=== PATIENT | female | born 1990 | race Caucasian/White ===

== ENCOUNTER 2017-10-25 19:05 | Emergency (ER) | payer OTHER, MEDICAID ==
[~2017-10-25] VITALS: Ht 160 cm; Wt 90.7 kg
[~2017-10-25 19:05] MED LIST: ACYCLOVIR 400400 MG PO; AMOXICILLIN875 MG PO; CITRANATAL B-C1 EAC1 PO; TRINATE TABLET1 TAB PO; ZOFRAN4 MG PO
[2017-10-25 19:09] VITALS: BP 143/81
[2017-10-25] MEDS ORDERED: BACTRIM DS TAB1 EACH PO (19:15)
[2017-10-25] MEDS ORDERED: KEFLEX500 M1 PO (19:15)
[2017-10-25] MEDS ORDERED: TRAMADOL 50 MG50 MG PO (19:16)
== END 2017-10-25 19:20 | disposition home or self-care (01) ==
LOC: M.ERS 19:05
DX: L03.317 Cellulitis of buttock (principal); F17.210 Nicotine dependence, cigarettes, uncomplicated

== ENCOUNTER 2017-10-28 22:09 | Emergency (ER) | payer OTHER, MEDICAID ==
[~2017-10-28] VITALS: Ht 160 cm; Wt 90.7 kg
[~2017-10-28 22:09] MED LIST changes: +BACTRIM DS TAB1 EACH PO; +KEFLEX500 M1 PO; +TRAMADOL 50 MG50 MG PO
[2017-10-28 22:55] VITALS: BP 129/59
== END 2017-10-28 22:56 | disposition home or self-care (01) ==
LOC: M.ERS 22:09
DX: L02.31 Cutaneous abscess of buttock (principal); Z98.890 Other specified postprocedural states

== ENCOUNTER 2018-03-01 18:59 | Emergency (ER) | payer OTHER, MEDICAID ==
[~2018-03-01] VITALS: Ht 160 cm; Wt 95.3 kg
[2018-03-01 21:28] LABS: URINE BILIRUBIN NEGATIVE (Negative); URINE BLOOD TRACE (Negative); URINE CLARITY CLEAR; URINE COLOR YELLOW; URINE GLUCOSE-RANDOM NEGATIVE (Negative); URINE KETONES NEGATIVE (Negative); URINE LEUKOCYTES NEGATIVE (Negative); URINE NITRITE NEGATIVE (Negative); URINE PROTEIN NEGATIVE (Negative); URINE SPECIFIC GRAVITY >= 1.030 (1.005-1.030); URINE UROBILINOGEN 0.2 E.U./dl (0.2-1.0)
[2018-03-01 21:59] VITALS: BP 104/71
== END 2018-03-01 22:00 | disposition home or self-care (01) ==
LOC: M.ERS 18:59
PROVIDERS: Physician Assistant Surgical
DX: J02.9 Acute pharyngitis, unspecified (principal); N93.9 Abnormal uterine and vaginal bleeding, unspecified; F17.210 Nicotine dependence, cigarettes, uncomplicated; Z98.890 Other specified postprocedural states

== ENCOUNTER 2019-09-18 22:05 | Emergency (ER) | payer OTHER, MEDICAID ==
[~2019-09-18] VITALS: Ht 162.6 cm; Wt 104.3 kg
[2019-09-18 22:22] LABS: URINE BILIRUBIN NEGATIVE (Negative); URINE BLOOD 3+ (Negative); URINE COLOR YELLOW; URINE GLUCOSE-RANDOM NEGATIVE (Negative); URINE KETONES TRACE (Negative); URINE LEUKOCYTES-REFLEX TRACE (Negative); URINE NITRITE-REFLEX NEGATIVE (Negative); URINE PROTEIN TRACE (Negative); URINE SPECIFIC GRAVITY >= 1.030 (1.005-1.030); URINE UROBILINOGEN 0.2 E.U./dl (0.2-1.0)
[2019-09-18 22:23] LABS: URINE CLARITY HAZY
[2019-09-18 22:29] LABS: BACTERIA-REFLEX None Seen /HPF (None Seen); MUCUS 4-6 Moderate strn/LPF (None Seen); SQUAMOUS >10 Many /LPF (0-3); URINE RBC >20 Many /HPF (0-2); URINE WBC-REFLEX None Seen /HPF (0-5)
[2019-09-18 22:30] LABS: CASTS None Seen /LPF (None Seen); CRYSTALS None Seen /LPF (None Seen)
[2019-09-19] MEDS ORDERED: HYDROCODON-ACE1 EAC8 PO (00:05)
[2019-09-19] MEDS ORDERED: ZOFRAN ODT4 MG PO (00:05)
[2019-09-19 00:23] VITALS: BP 98/50
== END 2019-09-19 00:36 | disposition home or self-care (01) ==
LOC: M.ERS 22:05
PROVIDERS: Emergency Medicine
DX: N20.0 Calculus of kidney (principal); R11.10 Vomiting, unspecified; Z98.890 Other specified postprocedural states

== ENCOUNTER 2021-04-29 13:42 | Emergency (ER) | payer OTHER, MEDICAID ==
[~2021-04-29] VITALS: Ht 162.6 cm; Wt 104.3 kg
[~2021-04-29 13:42] MED LIST changes: +HYDROCODON-ACE1 EAC8 PO; +ZOFRAN ODT4 MG PO
[2021-04-29] MEDS ORDERED: ANXIETY/DEPRESSION (13:59)
[2021-04-29 14:39] LABS: INFLUENZA A ANTIGEN Negative (Negative); INFLUENZA B ANTIGEN Negative (Negative)
[2021-04-29] MEDS ORDERED: FLONASE 0.05%50 MCG NARES (15:22)
[2021-04-29] MEDS ORDERED: ZYRTEC10 MG PO (15:22)
[2021-04-29 15:57] VITALS: BP 134/70
== END 2021-04-29 15:57 | disposition home or self-care (01) ==
LOC: M.ERS 13:42
PROVIDERS: Nurse Practitioner Family
DX: J30.9 Allergic rhinitis, unspecified (principal); Z20.822 Contact with and (suspected) exposure to COVID-19; F17.210 Nicotine dependence, cigarettes, uncomplicated; Z98.890 Other specified postprocedural states